=== PATIENT | male | born 2000 | race Two or more races ===

== ENCOUNTER 2022-03-29 13:51 | Inpatient (IN) | payer OTHER ==
[~2022-03-29] VITALS: Ht 172.7 cm; Wt 63.5 kg
--- NOTE | 2022-03-29 14:10 | NUR ---
SE RECIBE PTE ALERTA Y ORIENTADO X3,REFIERE TENER DOLOR ABDOMINAL ,SE LE XIOMARA S/V SE UBICA.
--- NOTE | 2022-03-29 15:54 | NUR ---
PTE EVALUADO POR . RN PATHAK ORIENTA SOBRE ORDENES DE [place] REFIERE COMPRENDER. EXTRAE MUESTRAS DE LABORATORIOS Y CANALIZA VENA BAJO MEDIDAS ASEPTICAS. ADMINISTRA MEDICAMENTOS, BAJO MEDIDAS ASEPTICAS. ENTREGA CONTRASTE ORAL Y ORIENTA SOBRE INGESTA. NOTIFICA A A RADIOLOGIA PARA CT.
== END 2022-03-31 18:21 | disposition home or self-care (01) | DRG 331 ==
LOC: ER 13:51 → SEC-K 22:15 → SURG 22:15
PROVIDERS: Surgery; ADMIT Internal Medicine; ATTEND Internal Medicine
PROC: BW21YZZ Computerized Tomography (CT Scan) of Abdomen and Pelvis using Other Contrast (ICD-10-PCS; 2022-03-29)
PROC: 0DTJ4ZZ Resection of Appendix, Percutaneous Endoscopic Approach (ICD-10-PCS; 2022-03-30)
PROC: 0DQH4ZZ Repair Cecum, Percutaneous Endoscopic Approach (ICD-10-PCS; principal; 2022-03-30 19:15)
DX: K35.30 Acute appendicitis with localized peritonitis, without perforation or gangrene (principal); Z20.822 Contact with and (suspected) exposure to COVID-19